=== PATIENT | female | born 2005 | race Asian ===

== ENCOUNTER 2024-07-22 16:57 | Emergency (ER) | payer OTHER, SELFPAY ==
--- NOTE | ~2024-07-22 | XR_ITS ---
HISTORY: fall . Post reduction imaging COMPARISON: Previous examination performed 2 hours earlier TECHNIQUE: 2 views of the right shoulder were performed FINDINGS: No acute fracture is appreciated. The glenohumeral and acromioclavicular joint space is maintained The visualized portion of the adjacent right lung is clear. The humeral head is now well seated within the glenoid fossa. IMPRESSION: No acute fracture post reduction, as detailed above. Reviewed, dictated and finalized at location A. EGE DEAN
--- NOTE | ~2024-07-22 | XR_ITS ---
HISTORY: R shoulder pain s/p injury COMPARISON: None TECHNIQUE: 3 views of the right shoulder were performed FINDINGS: Inferior and medial dislocation of the right shoulder is identified. No acute fracture is appreciated. Post reduction imaging is recommended for confirmation. IMPRESSION: Anterior shoulder dislocation, as detailed above. Reviewed, dictated and finalized at location A. ERN FITTER
[2024-07-22 17:03] VITALS: BP 115/77; PULSE 63; RESP 16; TEMP 36.4; O2SAT 99
--- NOTE | 2024-07-22 17:24 | ED_ITS ---
HPI - Extremity Injury (Upper) General Chief Complaint: Extremity Injury, Upper <Anupama Eubanks APRN - Last Filed: 07/22/24 18:56> Stated Complaint: R shoulder pain <Anupama Eubanks APRN - Last Filed: 07/22/24 18:56> Time Seen by Provider: 07/22/24 17:15 <Anupama Eubanks APRN - Last Filed: 07/22/24 18:56> Focused HPI: Patient is a 19-year-old female who presents to the ER with right shoulder pain and left jaw pain after falling around 545 today. Patient reports she was opening a door when she slipped and landed on the floor. She reports she made impact with the floor with her right shoulder and hit her left jaw causing a tiny laceration. Patient reports she has a history jaundice but no other relevant medical history. She endorses pain with any type movement or manipulation, but declines pain with palpation. Patient denies any shortness of breath, rib cage pain, decreased elbow, right hand, wrist, finger range of motion. She reports she does not want pain medication at the time examination. GENERAL: Well-appearing, well-nourished, and in mild distress d/t pain. HEAD: Normocephalic, atraumatic. CHEST: Clear to auscultation. ?No respiratory distress. HEART: Regular rate and rhythm.? NEURO: ?Alert and oriented x3. MUSC: No palpable or visible disfiguration, although pt does not tolerate examination well. Patient screened in triage and initial orders placed.? ?Additional care and disposition to be based upon?diagnostic testing and treatment. <Anupama Eubanks CLERICAL PROOFREADER - Last Filed: 07/22/24 18:56> Related Data Allergies/Adverse Reactions: Allergies Allergy/AdvReac Type Severity Reaction Status Date / Time No Known Allergies Allergy Verified 07/22/24 16:58 <Anupama Eubanks APRN - Last Filed: 07/22/24 18:56> Exam Narrative: APPEARANCE: No apparent distress. Head: atraumatic. EYES: EOMI, NOSE: Atraumatic NECK: Trachea midline RESPIRATORY: No increased rate of breathing CARDIOVASCULAR: RRR, ABDOMINAL: Non-distended MUSCULOSKELETAl: Focal exam of the right shoulder revealed an arm laying flaccid the patient's right side, concave deformity over the anterior deltoid, note numbness over the lateral deltoid, Radian ulnar median motor nerve distributions intact. Cap refill less than 2 seconds. NEURO: Alert. Moving 4/4 extremities SKIN:: Warm, dry. Normal color PSYCHIATRIC: Normal affect <Yohannes Richard MD - Last Filed: 07/22/24 20:22> Course Vital Signs Vital signs: Vital Signs Temperature 97.6 F 07/22/24 17:03 Pulse Rate 63 07/22/24 17:03 Respiratory Rate 16 07/22/24 17:03 Blood Pressure 115/77 07/22/24 17:03 Pulse Oximetry 99 07/22/24 17:03 Temperature 97.6 F 07/22/24 17:03 Pulse Rate 63 07/22/24 17:03 Respiratory Rate 16 07/22/24 17:03 Blood Pressure 115/77 07/22/24 17:03 Pulse Oximetry 99 07/22/24 17:03 <Anupama Eubanks APRN - Last Filed: 07/22/24 18:56> Vital Signs Temperature 97.6 F 07/22/24 17:03 Pulse Rate 63 07/22/24 17:03 Respiratory Rate 16 07/22/24 17:03 Blood Pressure 115/77 07/22/24 17:03 Pulse Oximetry 99 07/22/24 17:03 Temperature 97.6 F 07/22/24 17:03 Pulse Rate 63 07/22/24 17:03 Respiratory Rate 16 07/22/24 17:03 Blood Pressure 115/77 07/22/24 17:03 Pulse Oximetry 99 07/22/24 17:03 <Yohannes Richard MD - Last Filed: 07/22/24 20:22> Procedures Orthopedic Joint Reduction Joint #1: Orthopedic Joint Reduction Date: 07/22/24 <Yohannes Richard MD - Last Filed: 07/22/24 20:22> Time Out Performed: Yes <Yohannes Richard MD - Last Filed: 07/22/24 20:22> Side: right <Yohannes Richard MD - Last Filed: 07/22/24 20:22> Joint Reduction Location: shoulder <Yohannes Richard MD - Last Filed: 07/22/24 20:22> Analgesia: nerve block <Yohannes Richard MD - Last Filed: 07/22/24 20:22> Pre-Procedure Neuro Vascular Exam: normal <Yohannes Richard MD - Last Filed: 07/22/24 20:22> Local Anesthesia: lidocaine 1% <Yohannes Richard MD - Last Filed: 07/22/24 20:22> Amount of anesthesic used (mL): 5 <Yohannes Richard MD - Last Filed: 07/22/24 20:22> Shoulder Technique Used (if applicable): traction/counter-traction <Yohannes Richard MD - Last Filed: 07/22/24 20:22> Post-reduction neuro exam: intact <Yohannes Richard MD - Last Filed: 07/22/24 20:22> Post-reduction vascular: intact <Yohannes Richard MD - Last Filed: 07/22/24 20:22> Post Reduction X-Ray Obtained: Yes <Yohannes Richard MD - Last Filed: 07/22/24 20:22> Post Reduction X-Ray Results: reduced <Yohannes Richard MD - Last Filed: 07/22/24 20:22> Splint Applied: Yes <Yohannes Richard MD - Last Filed: 07/22/24 20:22> Patient Tolerated Procedure: well (brief Mattie syndrome due to interscalene block.) <Yohannes Richard MD - Last Filed: 07/22/24 20:22> MDM - Extremity Injury (Upper) MDM Narrative Medical decision making narrative: -Course: 19-year-old female presenting with shoulder dislocation. Shoulder was reduced. Neuro exam pre and post was normal. Patient palced in shoulder immobilizer and discharged with orthopedic follow-up. -DDX includes but is not limited to: She dislocation, humeral fracture <Yohannes Richard MD - Last Filed: 07/22/24 20:22> Discharge Plan Discharge Clinical Impression: Dislocated shoulder <Anupama Eubanks APRN - Last Filed: 07/22/24 18:56> Patient Disposition: Home, Self-Care <Anupama Eubanks APRN - Last Filed: 07/22/24 18:56> Condition: Stable <Anupama Eubanks APRN - Last Filed: 07/22/24 18:56> Instructions: Antibiotic Form, Shoulder Dislocation (ED) <Anupama Eubanks APRN - Last Filed: 07/22/24 18:56> Additional Instructions: You were seen in the emergency department after dislocating your shoulder. Please keep the immobilizer on until you are cleared by Orthopedic surgery. Please use Motrin Tylenol for pain. Please return if you develop severe pain or weakness your hand. <Anupama Eubanks APRN - Last Filed: 07/22/24 18:56> Patient Language: Congolese <Anupama Eubanks APRN - Last Filed: 07/22/24 18:56> Prescriptions: New ibuprofen 800 mg tablet 800 mg PO TID PRN (Reason: pain) 7 Days Qty: 21 0RF methocarbamol 750 mg tablet 1,500 mg PO TID Qty: 35 0RF acetaminophen 500 mg tablet 1,000 mg PO TID PRN (Reason: tayler) 7 Days Qty: 42 0RF <Anupama Eubanks APRN - Last Filed: 07/22/24 18:56> Follow-up/Referrals: Chaka Gannon MD [Physician] - 1 Week (Shoulder dislocation) PHYSICIAN,ENGINEERING TECHNOLOGIST [Primary Care Provider] - <Anupama Eubanks APRN - Last Filed: 07/22/24 18:56>
[2024-07-22] MEDS: HYDROcodone/acetaminophen (*CRX) 5-325 MG TABLET 2 TAB PO (19:33)
[2024-07-22 20:56] VITALS: BP 118/82; PULSE 66; RESP 15; O2SAT 100
[2024-07-22 21:22] VITALS: BP 118/79; PULSE 66; RESP 15; O2SAT 100
== END 2024-07-22 21:24 | disposition home or self-care (01) ==
LOC: ANHED 20:34
PROVIDERS: Emergency Provider Emergency Medicine
DX: S43.004A Unspecified dislocation of right shoulder joint, initial encounter (principal); W19.XXXA Unspecified fall, initial encounter
CPT/HCPCS: 23650; 73030; 99285; A9270